=== PATIENT | female | born 1935 | race Caucasian/White ===

== ENCOUNTER 2018-06-15 10:15 | Observation (INO) | payer MEDICARE, BC, OTHER ==
[2018-06-15] MEDS ORDERED: SODIUM CHLORIDE 0.9% 500 ML IV STA ×2 (11:17→12:33)
[2018-06-15] MEDS ORDERED: MECLIZINE 12.5 MG TAB PO STA (11:32)
--- NOTE | 2018-06-15 11:32 | ED ---
General Adult HPI - General Chief complaint: Dizziness Stated complaint: dizziness, hypertension Source: patient, family Mode of arrival: wheelchair Limitations: no limitations - History of Present Illness Initial comments: Dictation was produced using ihiji dictation software. please excuse any grammatical, word or spelling errors. Chief Complaint: 82-year-old female past medical history of paroxysmal atrial fibrillation, hypertension presents with acute onset dizziness. History of Present Illness: 82-year-old female past medical history of atrial fibrillation hypertension. Patient states she is visiting from out of town. She is originally from [place] where she receives her care. Patient is does have an established security services manager for home prescribes her Rythmol. Patient states that today she stood up and felt really dizzy. She denies any palpitations with the dizziness. Denies any history of strokes. No constitutional symptoms. Patient is from [facility] yesterday. She reports that her symptoms are only exacerbated with standing from a supine position. She does report that this dizziness causing her to fall with a predilection to the right side. The ROS documented in this emergency department record has been reviewed and confirmed by me. Those systems with pertinent positive or negative responses have been documented in the HPI. All other systems are other negative and/or noncontributory. - Related Data Home Medications Medication Instructions Recorded Confirmed Atorvastatin [Lipitor] 10 mg PO DAILY 06/15/18 06/15/18 Calcium Carbonate [Calcium] 600 mg PO DAILY 06/15/18 06/15/18 Pramipexole [Mirapex] 0.25 mg PO HS 06/15/18 06/15/18 Propafenone [Rythmol] 150 mg PO TID 06/15/18 06/15/18 Valsartan/Hydrochlorothiazide 1 tab PO DAILY 06/15/18 06/15/18 [Valsartan-Hctz 160-12.5 mg Tab] amLODIPine BESYLATE [Norvasc] 2.5 mg PO HS 06/15/18 06/15/18 Allergies Allergy/AdvReac Type Severity Reaction Status Date / Time No Known Allergies Allergy Verified 06/15/18 11:01 Review of Systems ROS Statement: Those systems with pertinent positive or pertinent negative responses have been documented in the HPI. ROS Other: All systems not noted in ROS Statement are negative. Past Medical History Past Medical History: Hypertension, Osteoarthritis (OA) Additional Past Medical History / Comment(s): paroxysmal atrial tachycardia History of Any Multi-Drug Resistant Organisms: None Reported Past Surgical History: Hysterectomy Additional Past Surgical History / Comment(s): vein stripping, cataract Past Psychological History: No Psychological Hx Reported Smoking Status: Never smoker Past Alcohol Use History: Daily Past Drug Use History: None Reported General Exam - General Exam Comments Initial Comments: PHYSICAL EXAM: General Impression: Alert and oriented x3, not in acute distress HEENT: Normocephalic atraumatic, extra-ocular movements intact, pupils equal and reactive to light bilaterally, mucous membranes moist, left beating nystagmus, no skew with one eye test, no direction changing nystagmus, negative head impulse Cardiovascular: Heart regular rate and rhythm, S1&S2 audible, no murmurs, rubs or gallops Chest: Lungs clear to auscultation bilaterally, no rhonchi, no wheeze, no rales Abdomen: Bowel sounds present, abdomen soft, non-tender, non-distended, no organomegaly Musculoskeletal: Pulses present and equal in all extremities, no peripheral edema Motor: Power 5/5 bilaterally, no focal deficits noted Neurological: CN II-XII grossly intact, no focal motor or sensory deficits noted Skin: Intact with no visualized rashes Psych: Normal affect and mood Limitations: no limitations Course Vital Signs 06/15/18 06/15/18 10:37 12:31 Temperature 97.9 F Pulse Rate 77 66 Respiratory 18 16 Rate Blood Pressure 191/86 137/64 O2 Sat by Pulse 97 97 Oximetry Medical Decision Making - Medical Decision Making ED course: The female past medical history paroxysmal atrial fibrillation hypertension presents with vertiginous symptoms. Upon arrival shows blood pressure 191/86, rest of vital signs within normal limits.Laboratory evaluation obtained. CBC unremarkable. Coag panel unremarkable. Metabolic panel is grossly unremarkable. There is some signs of dehydration given elevated BUN/creatinine ratio. Urine shows findings to suggest urinary tract infection. X-ray was obtained showing possible lingular infiltrate. Patient not having any infectious symptoms however given the patient is dizzy is possibility that these could be causing her symptoms. Given age and risk factors there is still concern for posterior stroke. Patient given aspirin. Discussed with patient that would like to keep her for MRA of the neck looking for vertebrobasilar insufficiency. Understandable and agreeable. Patient be admitted to observation. EKG Interpretation: A 12 lead EKG was obtained. It was interpreted by myself and attending physician. There is a P wave before every QRS complex. Rate is 62. Rhythm is normal sinus,. Interval to 2, QRS 116, QTC 41. QT is not prolonged. No ST segment depression or elevation. Patient burned EKG from [place] during a routine visit showing no acute changes. Overall, this EKG is unremarkable - Lab Data Result diagrams: 06/15/18 11:28 06/15/18 11:28 Lab Results 06/15/18 06/15/18 06/15/18 Range/Units 11:19 11:28 11:28 WBC 5.9 (3.8-10.6) k/uL RBC 4.51 (3.80-5.40) m/uL Hgb 14.4 (11.4-16.0) gm/dL Hct 43.8 (34.0-46.0) % MCV 97.0 (80.0-100.0) fL MCH 31.9 (25.0-35.0) pg MCHC 32.9 (31.0-37.0) g/dL RDW 13.0 (11.5-15.5) % Plt Count 180 (150-450) k/uL Neutrophils % 70 % Lymphocytes % 22 % Monocytes % 5 % Eosinophils % 1 % Basophils % 0 % Neutrophils # 4.2 (1.3-7.7) k/uL Lymphocytes # 1.3 (1.0-4.8) k/uL Monocytes # 0.3 (0-1.0) k/uL Eosinophils # 0.0 (0-0.7) k/uL Basophils # 0.0 (0-0.2) k/uL PT (9.0-12.0) sec INR (<1.2) Sodium 140 (137-145) mmol/L Potassium 4.2 (3.5-5.1) mmol/L Chloride 106 (98-107) mmol/L Carbon Dioxide 26 (22-30) mmol/L Anion Gap 8 mmol/L BUN 25 H (7-17) mg/dL Creatinine 0.90 (0.52-1.04) mg/dL Est GFR (CKD-EPI)AfAm 69 (>60 ml/min/1.73 sqM) Est GFR (CKD-EPI)NonAf 60 (>60 ml/min/1.73 sqM) Glucose 102 H (74-99) mg/dL Calcium 9.6 (8.4-10.2) mg/dL Total Bilirubin 0.7 (0.2-1.3) mg/dL AST 21 (14-36) U/L ALT 28 (9-52) U/L Alkaline Phosphatase 81 (38-126) U/L Troponin I (0.000-0.034) ng/mL Total Protein 6.8 (6.3-8.2) g/dL Albumin 4.2 (3.5-5.0) g/dL Urine Color Colorless Urine Appearance Clear (Clear) Urine pH 7.0 (5.0-8.0) Ur Specific [place] 1.004 (1.001-1.035) Urine Protein Negative (Negative) Urine Glucose (UA) Negative (Negative) Urine Ketones Negative (Negative) Urine Blood Negative (Negative) Urine Nitrite Negative (Negative) Urine Bilirubin Negative (Negative) Urine Urobilinogen <2.0 (<2.0) mg/dL Ur Leukocyte Esterase Moderate H (Negative) Urine RBC <1 (0-5) /hpf Urine WBC 9 H (0-5) /hpf Urine WBC Clumps Rare H (None) /hpf Ur Squamous Epith Cells <1 (0-4) /hpf Urine Bacteria Occasional H (None) /hpf 06/15/18 06/15/18 Range/Units 11:28 11:28 WBC (3.8-10.6) k/uL RBC (3.80-5.40) m/uL Hgb (11.4-16.0) gm/dL Hct (34.0-46.0) % MCV (80.0-100.0) fL MCH (25.0-35.0) pg MCHC (31.0-37.0) g/dL RDW (11.5-15.5) % Plt Count (150-450) k/uL Neutrophils % % Lymphocytes % % Monocytes % % Eosinophils % % Basophils % % Neutrophils # (1.3-7.7) k/uL Lymphocytes # (1.0-4.8) k/uL Monocytes # (0-1.0) k/uL Eosinophils # (0-0.7) k/uL Basophils # (0-0.2) k/uL PT 10.6 (9.0-12.0) sec INR 1.1 (<1.2) Sodium (137-145) mmol/L Potassium (3.5-5.1) mmol/L Chloride (98-107) mmol/L Carbon Dioxide (22-30) mmol/L Anion Gap mmol/L BUN (7-17) mg/dL Creatinine (0.52-1.04) mg/dL Est GFR (CKD-EPI)AfAm (>60 ml/min/1.73 sqM) Est GFR (CKD-EPI)NonAf (>60 ml/min/1.73 sqM) Glucose (74-99) mg/dL Calcium (8.4-10.2) mg/dL Total Bilirubin (0.2-1.3) mg/dL AST (14-36) U/L ALT (9-52) U/L Alkaline Phosphatase (38-126) U/L Troponin I <0.012 (0.000-0.034) ng/mL Total Protein (6.3-8.2) g/dL Albumin (3.5-5.0) g/dL Urine Color Urine Appearance (Clear) Urine pH (5.0-8.0) Ur Specific [place] (1.001-1.035) Urine Protein (Negative) Urine Glucose (UA) (Negative) Urine Ketones (Negative) Urine Blood (Negative) Urine Nitrite (Negative) Urine Bilirubin (Negative) Urine Urobilinogen (<2.0) mg/dL Ur Leukocyte Esterase (Negative) Urine RBC (0-5) /hpf Urine WBC (0-5) /hpf Urine WBC Clumps (None) /hpf Ur Squamous Epith Cells (0-4) /hpf Urine Bacteria (None) /hpf Disposition Clinical Impression: Vertigo Disposition: ADMITTED IP TO THIS HOSP Referrals: None,Stated [Primary Care Provider] - 1-2 days Time of Disposition: 13:14
[2018-06-15 11:44] LABS: Basophils % (A) 0 %; Eosinophils % (A) 1 %; HCT 43.8 % (34.0-46.0); HGB 14.4 gm/dL (11.4-16.0); Lymphocytes # (A) 1.3 k/uL (1.0-4.8); Lymphocytes % (A) 22 %; MCH 31.9 pg (25.0-35.0); MCHC 32.9 g/dL (31.0-37.0); Mean Platelet Volume 7.2; Monocytes # (A) 0.3 k/uL (0-1.0); Monocytes % (A) 5 %; Neutrophils # (A) 4.2 k/uL (1.3-7.7); Neutrophils % (A) 70 %; Platelet Count 180 k/uL (150-450); RBC 4.51 m/uL (3.80-5.40); WBC 5.9 k/uL (3.8-10.6)
[2018-06-15 11:48] LABS: Appearance,Urine Clear (Clear); Bacteria,Urine Occasional /hpf; Bilirubin,Urine Negative (Negative); Blood,Urine Negative (Negative); Color,Urine Colorless; Glucose,Urine (UA) Negative (Negative); Ketones,Urine Negative (Negative); Leukocyte Esterase,Urine Moderate (Negative); Nitrite,Urine Negative (Negative); Protein,Urine Negative (Negative); RBC,Urine <1 /hpf (0-5); Specific Gravity,Urine 1.004 (1.001-1.035); Squamous Epithelial Cell,Urine <1 /hpf (0-4); Urobilinogen,Urine <2.0 mg/dL (<2.0); WBC,Urine 9 /hpf (0-5)
[2018-06-15 11:51] LABS: Albumin 4.2 g/dL (3.5-5.0); Calcium 9.6 mg/dL (8.4-10.2); Potassium 4.2 mmol/L (3.5-5.1); Total Bilirubin 0.7 mg/dL (0.2-1.3); Total Protein 6.8 g/dL (6.3-8.2)
[2018-06-15 11:52] LABS: INR 1.1 (<1.2); Prothrombin Time 10.6 sec (9.0-12.0)
--- NOTE | 2018-06-15 11:52 | XR ---
EXAMINATION TYPE: XR chest 2V DATE OF EXAM: 06/15/2018 COMPARISON: None INDICATION: Dizziness hypertension TECHNIQUE: Frontal and lateral views of the chest are obtained. FINDINGS: The heart size is normal. The pulmonary vasculature is normal. Minimal infiltrate is in the lingula above the left diaphragm. Findings can be compatible with subseg mental atelectasis.. IMPRESSION: 1. Minimal infiltrate within the lingula. Correlate for subsegmental atelectasis. 2. Acute pulmonary process is not otherwise identified.
[2018-06-15] MEDS ORDERED: ASPIRIN 81 MG PO STA (12:34)
[2018-06-15] MEDS ORDERED: cefTRIAXone IN SWFI 1,000 MG/10 ML SYRINGE IVP STA (12:37)
[2018-06-15] MEDS ORDERED: NALOXONE 0.4 MG/ML 1 ML VIAL IV PRN (13:05)
--- NOTE | 2018-06-15 17:59 | MR ---
EXAMINATION TYPE: MR angio head wo con DATE OF EXAM: 06/15/2018 COMPARISON: None HISTORY: Vertigo TECHNIQUE: Time of flight images focusing on the [place] of [place] were performed without contrast. FINDINGS: There is arterial flow in the vertebrobasilar artery system. Distal vertebral arteries are symmetric. There is arterial flow in the distal internal carotid arteries bilaterally. There is arter ial flow in the anterior middle and posterior cerebral arteries. I see no evidence of aneurysm or schuyler vascularity. There is no mass effect. There is no evidence of stenosis. IMPRESSION: Negative MR angiogram of the brain.
--- NOTE | 2018-06-15 18:31 | HP ---
HISTORY AND PHYSICAL CHIEF COMPLAINT: This is an 82-year-old white female with paroxysmal atrial fibrillation, hypertension with acute onset of dizziness. She is admitted for an MRA to rule out vertebrobasilar insufficiency. PAST MEDICAL HISTORY: 1. Atrial fibrillation. 2. Hypertension. 3. Osteoarthritis. 4. Paroxysmal atrial tachycardia. She is from out of town, originally from [place]. She says her email marketing processor put her on Rythmol. She stood up today and became real dizzy. Denied any palpitations with the dizziness. No history of strokes. This is when standing from a supine position, dizziness causing her to fall with right side. REVIEW OF SYSTEMS: Fourteen-point review of systems negative except for mentioned in HPI. MEDICATIONS: 1. Lipitor 10 daily. 2. Calcium carbonate 600 mg daily. 3. Mirapex 0.25 daily. 4. Rythmol 150 t.i.d. 5. Valsartan/HCTZ 160/12.5 daily. 6. Norvasc 2.5 daily. ALLERGIES: NO KNOWN DRUG ALLERGIES. SURGICAL HISTORY: 1. Hysterectomy. 2. Vein stripping. 3. Cataract surgery. SOCIAL HISTORY: Daily alcohol. No smoking. No illicit drugs. PHYSICAL EXAMINATION: Blood pressure 130s to 190s over 60s to 80s, oxygen 97% on room air. Temperature 97.9, pulse 66 to 76, respiratory rate 16 to 18. CARDIOVASCULAR: S1, S2. LUNGS: Clear. GI: Soft. Non-tender. MUSCULOSKELETAL: Range of motion full x4. NEUROLOGIC: Cranial nerves are intact. SKIN: Warm, dry, intact. PSYCH: Normal mood and affect. Alert and oriented x3. HEENT: Normocephalic, atraumatic. X-ray done showed possible lingular infiltrate, concern about posterior stroke due to atrial fibrillation with hypertension acceleration and vertiginous symptoms. Neurologic consult will be done as well as a cardiology consult. MRA/MRI looking for vertebrobasilar insufficiency. Will monitor overnight, get consultations. Please see further orders. MMODL / IJN: [id number] /
[2018-06-15] MEDS: amLODIPine 2.5 MG TAB PO SCH (20:20)
[2018-06-15] MEDS: PRAMIPEXOLE 0.25 MG TAB PO SCH (20:20)
[2018-06-15] MEDS: PROPAFENONE 150 MG TAB PO SCH (20:20)
[2018-06-16 02:47] LABS: Potassium 4.1 mmol/L (3.5-5.1)
[2018-06-16 06:03] LABS: Cholesterol 193 mg/dL (<200); HDL Cholesterol 79 mg/dL (40-60); LDL Cholesterol,Calculated 102 mg/dL (0-99); Triglycerides 58 mg/dL (<150)
[2018-06-16] MEDS: HYDROCHLOROTHIAZIDE 12.5 MG CAP PO SCH (08:10)
[2018-06-16] MEDS: PROPAFENONE 150 MG TAB PO SCH ×3 (08:10→22:48)
[2018-06-16] MEDS: ATORVASTATIN 10 MG TAB PO SCH (08:11)
[2018-06-16] MEDS: VALSARTAN 160 MG TAB PO SCH (08:11)
[2018-06-16] MEDS: CALCIUM CARBONATE 500 MG CHEWABLE PO SCH (11:24)
--- NOTE | 2018-06-16 13:43 | XR ---
EXAMINATION TYPE: XR chest 2V DATE OF EXAM: 06/16/2018 COMPARISON: 06/15/2018 INDICATION: Follow-up infiltrate TECHNIQUE: Frontal and lateral views of the chest are obtained. FINDINGS: The heart size is normal. The pulmonary vasculature is normal. The lungs are clear. Previous lingular infiltrate has resolved. IMPRESSION: 1. No acute pulmonary process.
--- NOTE | 2018-06-16 16:31 | CT ---
EXAMINATION TYPE: CT angio chest DATE OF EXAM: 06/16/2018 COMPARISON: 06/16/2018 chest radiograph HISTORY: elevated d-dimer, dizziness CT DLP: 414 mGycm. Automated Exposure Control for Dose Reduction was Utilized. CONTRAST: CTA scan of the thorax is performed with IV Contrast, patient injected with 70 mL of Isovue 370, pulm onary embolism protocol. MIP Images are created on CT scanner and reviewed. FINDINGS: LUNGS: There is minimal bibasilar subsegmental atelectasis present. The lungs are grossly clear, ther e is no concerning parenchymal mass or nodule identified. There is no pleural effusion or pneumotho rax seen. The tracheobronchial tree is patent. MEDIASTINUM: There is satisfactory enhancement of the pulmonary artery and its branches, there is no CT evidence for pulmonary embolism. There are no greater than 1 cm hilar or mediastinal lymph nodes. Heart is enlarged. No pericardial effusion is seen. Ascending thoracic aorta is within normal limits of size measuring 3.0 cm OTHER: Right-sided extrarenal pelvis is noted within the upper abdomen. Probable left renal cyst is i ll-defined given the phase of contrast enhancement. Multilevel degenerative changes of the spine are mild to moderate. IMPRESSION: 1. No evidence of pulmonary embolism. 2. Cardiomegaly without pericardial effusion. 3. Minimal bibasilar subsegmental atelectasis.
[2018-06-16 16:51] LABS: Appearance,Urine Clear (Clear); Bilirubin,Urine Negative (Negative); Blood,Urine Negative (Negative); Color,Urine Colorless; Glucose,Urine (UA) Negative (Negative); Ketones,Urine Negative (Negative); Leukocyte Esterase,Urine Moderate (Negative); Nitrite,Urine Negative (Negative); Protein,Urine Negative (Negative); RBC,Urine <1 /hpf (0-5); Specific Gravity,Urine 1.015 (1.001-1.035); Squamous Epithelial Cell,Urine <1 /hpf (0-4); Urobilinogen,Urine <2.0 mg/dL (<2.0); WBC,Urine 2 /hpf (0-5)
[2018-06-16] MEDS: cefTRIAXone IN SWFI 1,000 MG/10 ML SYRINGE IVP SCH (17:12)
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
[2018-06-16] MEDS: amLODIPine 2.5 MG TAB PO SCH (19:47)
[2018-06-16] MEDS: PRAMIPEXOLE 0.25 MG TAB PO SCH (19:47)
--- NOTE | 2018-06-16 19:49 | MR ---
EXAMINATION TYPE: MR brain wo con DATE OF EXAM: 06/16/2018 COMPARISON: None HISTORY: Vertigo Standard multiplanar, multisequence MRI departmental protocol Multiplanar, multisequence images of the brain were acquired. Diffusion weighted imaging was performe d. FINDINGS: There is cerebral cortical atrophy. There is no mass effect nor midline shift. There is no sign of intracranial hemorrhage. There is extensive patchy increased signal in the cerebral hemispher es on T2 and FLAIR images at the cook-white matter junction. The total number is more than 25 and the se measure up to 1.5 cm. The brainstem is intact. Cerebellum is intact. Corpus callosum is intact. Sella turcica appears zaki l. There is no evidence of a cortical infarct. 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 No cortical infarct seen.
--- NOTE | 2018-06-16 22:14 | PN ---
PROGRESS NOTE SUBJECTIVE: Uzupdh[age]jk[age]ow[age]-old white female still remains dizzy at rest. Neurology has seen her, ordered a few different tests. We suspected this is due to hypertension acceleration. Orthostatics were negative on her. MRA of the brain is negative. MRI is pending. She had elevated D-dimer. CT scan of the chest and repeat x-ray showed no infiltrate, no blood clot in the lungs. UA is borderline for urine infection. Await further recommendations from Neurology and Cardiology. Possible discharge home if her hypertension improves and she will continue with Rocephin for UTI, which is borderline at this point. There is no evidence of pneumonia. MMODL / IJN: [id number] /
--- NOTE | 2018-06-17 06:59 | ECHOF ---
Referral Reason:dizziness MEASUREMENTS -------- HEIGHT: 160.0 cm WEIGHT: 63.5 kg BP: RVIDd: 2.2 cm (< 3.3) IVSd: 1.1 cm (0.6 - 1.1) LVIDd: 4.7 cm (3.9 - 5.3) LVPWd: 1.3 cm (0.6 - 1.1) IVSs: 1.3 cm LVIDs: 3.5 cm LVPWs: 1.5 cm LA Diam: 3.3 cm (2.7 - 3.8) LAESV Index (A-L): 26.22 ml/m Ao Diam: 2.9 cm (2.0 - 3.7) AV Cusp: 1.9 cm (1.5 - 2.6) LA Diam: 4.0 cm (2.7 - 3.8) MV EXCURSION: 18.547 mm (> 18.000) MV EF SLOPE: 53 mm/s (70 - 150) EPSS: 0.6 cm MV E Star: 0.38 m/s MV DecT: 359 ms MV A Star: 0.69 m/s MV E/A Ratio: 0.55 RAP: 5.00 mmHg RVSP: 15.95 mmHg FINDINGS -------- Sinus rhythm. This was a techncally difficult study with suboptimal views, , Definity utilized for enhancement of i mages. LV size, wall thickness and systolic function are normal, with an EF greater than 55%. The left maximus tricular size is normal. The right ventricle is normal in size. The left atrial size is normal. The right atrial size is normal. Lumason used There is mild aortic valve sclerosis. There is no evidence of aortic regurgitation. Mild mitral annular calcification present. Mild mitral regurgitation is present. Mild tricuspid regurgitation present. Right ventricular systolic pressure is normal at < 35 mmHg. There is no evidence of pulmonary hypertension. There is no pulmonic regurgitation present. The aortic root size is normal. There is no pericardial effusion. CONCLUSIONS -------- 1. This was a techncally difficult study with suboptimal views, , Definity utilized for enhancement o f images. 2. LV size, wall thickness and systolic function are normal, with an EF greater than 55%. 3. The left ventricular size is normal. 4. The right ventricle is normal in size. 5. The left atrial size is normal. 6. The right atrial size is normal. 7. Lumason used 8. There is mild aortic valve sclerosis. 9. Mild mitral annular calcification present. 10. Mild mitral regurgitation is present. 11. Mild tricuspid regurgitation present. 12. Right ventricular systolic pressure is normal at < 35 mmHg. 13. There is no evidence of pulmonary hypertension. 14. There is no pulmonic regurgitation present. 15. The aortic root size is normal. 16. There is no pericardial effusion. MULTIMEDIA PROGRAMMER: Emily Low RDCS
[2018-06-17 08:39] VITALS: BP 123/60; PULSE 65; RESP 17; TEMP 97.9
[2018-06-17] MEDS: ATORVASTATIN 10 MG TAB PO SCH (08:39)
[2018-06-17] MEDS: HYDROCHLOROTHIAZIDE 12.5 MG CAP PO SCH (08:40)
[2018-06-17] MEDS: PROPAFENONE 150 MG TAB PO SCH (08:40)
[2018-06-17] MEDS: VALSARTAN 160 MG TAB PO SCH (08:40)
[2018-06-17] MEDS ORDERED: ASPIRIN 81 MG PO SCH (09:00)
[2018-06-17] MEDS: cefTRIAXone IN SWFI 1,000 MG/10 ML SYRINGE IVP SCH (11:10)
[2018-06-17] MEDS: CALCIUM CARBONATE 500 MG CHEWABLE PO SCH (11:10)
--- NOTE | 2018-06-17 13:21 | P.PN ---
Subjective Progress Note Date: 06/17/18 Patient is a pleasant 82-year-old female who is being followed by the neurology service for dizziness. Patient lives in [place] and is here visiting her summer home. Patient states she got dizzy in the middle the night requiring her to hold onto foster. Patient denies any lateralizing weakness. She denies any dysarthria or dysphagia. Patient denies headache or changes in vision. Patient does have history of paroxysmal atrial tachycardia. 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 Orthostatics were negative. Patient's blood pressure was quite elevated on admission at 191/86. Patient also was found to have a urinary tract infection on admission. Patient did have elevated d-dimer on admission and chest CTA was done which was negative for any pulmonary embolism. Patient is currently on antibiotics for urinary tract infection. Patient reports dizziness is approximately 60% improved. At the time of my evaluation, patient's resting comfortably in bed and appears to be in no acute distress. Objective - Vital Signs Vital signs: Vital Signs Temp 97.9 F 06/17/18 08:00 Pulse 65 06/17/18 08:00 Resp 17 06/17/18 08:00 BP 123/60 06/17/18 08:00 Pulse Ox 95 06/17/18 08:00 Intake & Output 06/16/18 06/17/18 06/17/18 18:59 06:59 18:59 Intake Total 720 120 Balance 720 120 Weight 63.5 kg Intake: Oral 720 120 Other: # Voids 1 1 - Exam PHYSICAL EXAM: GENERAL APPEARANCE: Patient is a well-developed, female who appears to be in no acute distress. HEENT: Normocephalic, atraumatic, no facial asymmetry is seen. Neck is supple with no masses felt. CARDIOVASCULAR: Regular rate and rhythm. ABDOMEN: Nontender, nondistended. EXTREMITIES: Show no edema or clubbing. NEUROLOGICAL EXAM: Patient is awake, alert, and oriented 3. Speech and language are normal. Strength is full in all 4 extremities. Sensory exam is normal to light touch in all 4 extremities. No facial asymmetry is seen on cranial nerve testing. No pronator drift is noted. No tremors or seizure-like activity is seen. - Labs CBC & Chem 7: 06/15/18 11:28 06/16/18 02:13 Labs: Abnormal Lab Results - Last 24 Hours (Table) 06/16/18 Range/Units 15:03 Ur Leukocyte Esterase Moderate H (Negative) Microbiology - Last 24 Hours (Table) 06/16/18 15:03 Urine Culture - Preliminary Urine,Clean Catch Assessment and Plan Plan: Impression: 1. Dizziness, resolving 2. Uncontrolled hypertension 3. Elevated d-dimer 4. Acute urinary tract infection 5. History of paroxysmal atrial tachycardia Recommendations: Patient's dizziness is positional. Patient does state her dizziness is approximately 60% improved. Her dizziness is likely related to elevated blood pressure along with acute urinary tract infection. Neurologically she has no other symptoms. MRA was negative for any abnormality. MRI of the brain showed no evidence of a cortical infarct. MRI of the brain did show extensive white matter changes most likely consistent with chronic small vessel ischemia. Due to chronic small vessel ischemia, I do recommend continuing aspirin 81 mg by mouth daily after discharge. EEG was done and results are pending. A serum homocystine level was done and is normal. Continue statin therapy. Continue medical management for blood pressure control and urinary tract infection. Continue neurological checks. Patient is stable for discharge from a neurological standpoint. I will continue to follow with you on an as-needed basis. Feel free to call with any questions or concerns. I performed an examination of the patient and discussed the management with the YAM CURER. I have reviewed the YAM CURER notes and agree with the findings and plan of care.
--- NOTE | 2018-06-17 14:12 | P.PN ---
Subjective Progress Note Date: 06/17/18 This is a pleasant 82-year-old female who is very physically active, she spends 4 months out of the [place], has a history of hypertension, hyperlipidemia, paroxysmal atrial fibrillation and atrial tachycardia, osteoarthritis, presented to the hospital with symptoms of dizziness. Patient had apparently just stood up prior to the episode happening , she became so dizzy she had to hold herself up against the wall. She again had another episode very similar to this and again it was at a time where she was getting up from a supine position to a standing position. Chest x-ray on admission revealed minimal infiltrate within the lingula. White blood cell count is normal patient denies cough no fever or chills. EKG on arrival here shows a normal sinus rhythm with nonspecific ST-T wave changes. MR angiogram of the brain was performed which was negative. Patient does state that at the time the dizziness was happening she tried to check her blood pressure but it was not registering. White blood cell count 5.9, hemoglobin 14.4, platelet count 180. Sodium 140, potassium 4.1, BUN 5, creatinine 0.9. Magnesium 2.0. At the time of my examination, patient feels well, she denies any chest discomfort, no dizziness or lightheadedness, no palpitations. 06/17/2018 Patient seen and examined this morning, no further episodes of dizziness. No significant bradycardia or tachyarrhythmias. No evidence of hypotension. Echo revealed normal left ventricular systolic function. She is cleared for discharge from neurology perspective, from our standpoint patient a be able to be discharged home. We recommend that she follows up with Dr. Stapleton in the office, also been recommended the patient have an event monitor on discharge. This will be arranged for the patient. Objective - Vital Signs Vital signs: Vital Signs Temp 97.9 F 06/17/18 08:00 Pulse 65 06/17/18 08:00 Resp 17 06/17/18 08:00 BP 123/60 06/17/18 08:00 Pulse Ox 95 06/17/18 08:00 Intake & Output 06/16/18 06/17/18 06/17/18 18:59 06:59 18:59 Intake Total 720 120 Balance 720 120 Weight 63.5 kg Intake: Oral 720 120 Other: # Voids 1 1 - Exam PHYSICAL EXAMINATION: GENERAL: 82-year-old female in no acute distress at the time of my examination HEENT: Head is atraumatic, normocephalic. Pupils equal, round. Sclera anicteric. Conjunctiva are clear. Mucous membranes of the mouth are moist. Neck is supple. There is no elevated jugular venous pressure.] bruit is heard. HEART EXAMINATION: Heart S1, S2 normal. No murmur or gallop heard. CHEST EXAMINATION: Lungs are clear to auscultation and precussion. No chest wall tenderness is noted on palpation or with deep breathing. ABDOMEN: Soft, nontender. Bowel sounds are heard. No organomegaly noted. EXTREMITIES: 2+ peripheral pulses with no evidence of peripheral edema and no calf tenderness noted. NEUROLOGIC patient is awake, alert and oriented ?-3. . - Labs CBC & Chem 7: 06/15/18 11:28 06/16/18 02:13 Labs: Abnormal Lab Results - Last 24 Hours (Table) 06/16/18 Range/Units 15:03 Ur Leukocyte Esterase Moderate H (Negative) Microbiology - Last 24 Hours (Table) 06/16/18 15:03 Urine Culture - Preliminary Urine,Clean Catch Assessment and Plan Plan: Assessment and plan #1 dose of dizziness with no clear-cut evidence of syncope. No evidence of any tachycardia or bradycardia arrhythmias, no hypotension noted. #2 hypertension #3 history of atrial tachycardia, no history of atrial fibrillation. Plan From cardiology's perspective, patient may be able to be discharged home. We recommend she have a 30 day event monitor on discharge. We will schedule her to go and see Dr. Stapleton in the office next week. DNP note has been reviewed, I agree with a documented findings and plan of care. Patient was seen and examined.
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
--- NOTE | 2018-06-19 12:44 | EEG ---
ELECTROENCEPHALOGRAM REPORT DATE OF SERVICE: 06/17/2018. REASON FOR TESTING: Dizziness. DESCRIPTION OF THE PROCEDURE: This EEG was performed using a 21 channel digital electroencephalograph, following international 10-20 system. DESCRIPTION OF THE RECORDING: From the beginning of the tracing, and with patient's eyes closed, the background rhythm was mostly consisting of 10 Hz alpha frequency in the posterior occipital leads. No obvious asymmetry is seen. Photic stimulation was performed with a good driving response seen. No pathological waves were elicited. Hyperventilation was not performed. Rare movement artifacts are seen. The patient remains awake throughout the tracing. No epileptiform discharges were seen. Her EKG lead showed a regular rate and rhythm. INTERPRETATION: This awake EEG can be considered within normal limits. There is no asymmetry seen. No epileptiform discharges were noticed. The absence of epileptiform discharges does not rule out the diagnosis of epilepsy; therefore clinical correlation is recommended. MMLUCITA / ANTONI: [id number] /
== END 2018-06-17 15:41 | disposition home or self-care (01) ==
LOC: EC 10:15 → 6SEL 13:05
PROVIDERS: ADMIT Family Medicine; ATTEND Family Medicine
DX: R42 Dizziness and giddiness (principal); I48.0 Paroxysmal atrial fibrillation; I47.9 Paroxysmal tachycardia, unspecified; I10 Essential (primary) hypertension; E78.5 Hyperlipidemia, unspecified; M19.90 Unspecified osteoarthritis, unspecified site; I47.1 Supraventricular tachycardia; R79.1 Abnormal coagulation profile; R79.89 Other specified abnormal findings of blood chemistry; N39.0 Urinary tract infection, site not specified; G25.81 Restless legs syndrome; Z79.899 Other long term (current) drug therapy; Z83.3 Family history of diabetes mellitus; I67.9 Cerebrovascular disease, unspecified
CPT/HCPCS: 99285 ×2; 96361 ×2; 96374 ×2; 96376 ×2; 36415; 95819; 93005; 97530; 97162; 97166; 85379; 80061; 80053; 83735; 84132; 84484; 85025; 85610; 81001 ×2; 83090; 87086; 71046 ×2; 71275; 70544; 70551; G0378 ×3; C8929; J0696 ×3; Q9950; Q9967; 93306

== ENCOUNTER 2022-05-24 20:18 | Inpatient (IN) | payer MEDICARE, BC ==
[2022-05-24] MEDS ORDERED: SODIUM CHLORIDE 0.9% 500 ML 500 ML IV STA (20:39)
[2022-05-24] MEDS ORDERED: DILTIAZEM 125 MG in SODIUM CHLORIDE 0.9% 100 ML IV SCH (20:45)
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
[2022-05-24 21:04] LABS: Basophils # (A) 0.1 k/uL (0-0.2); Basophils % (A) 1 %; Eosinophils # (A) 0.2 k/uL (0-0.7); Eosinophils % (A) 2 %; HCT 42.8 % (34.0-46.0); HGB 14.2 gm/dL (11.4-16.0); Lymphocytes # (A) 1.7 k/uL (1.0-4.8); Lymphocytes % (A) 19 %; MCH 32.2 pg (25.0-35.0); MCHC 33.2 g/dL (31.0-37.0); MCV 96.9 fL (80.0-100.0); Monocytes # (A) 0.6 k/uL (0-1.0); Monocytes % (A) 7 %; Neutrophils # (A) 6.4 k/uL (1.3-7.7); Neutrophils % (A) 71 %; Platelet Count 216 k/uL (150-450); RBC 4.41 m/uL (3.80-5.40); RDW 12.9 % (11.5-15.5)
[2022-05-24 21:13] LABS: Albumin 4.2 g/dL (3.5-5.0); Calcium 9.2 mg/dL (8.4-10.2); Magnesium 1.9 mg/dL (1.6-2.3); Total Bilirubin 0.5 mg/dL (0.2-1.3); Total Protein 6.9 g/dL (6.3-8.2)
[2022-05-24 21:14] LABS: Partial Thromboplastin Time 23.6 sec (22.0-30.0); Prothrombin Time 11.1 sec (9.0-12.0)
--- NOTE | 2022-05-24 22:07 | XR ---
EXAMINATION TYPE: XR chest 2V DATE OF EXAM: 05/24/2022 COMPARISON: 06/16/2018 HISTORY: Dysrhythmia TECHNIQUE: 2 views FINDINGS: Heart is normal. Lungs are clear of consolidation. There are no hilar masses. Costophrenic angles are clear bony thorax is intact IMPRESSION: No active cardiopulmonary disease. No change.
[2022-05-24] MEDS ORDERED: NALOXONE 0.4 MG/ML 1 ML VIAL IV PRN (22:42)
[2022-05-24] MEDS ORDERED: ACETAMINOPHEN TAB 325 MG TAB PO PRN (22:42)
[2022-05-24] MEDS ORDERED: FLUTICASONE 50MCG/SPRAY NASAL 16GM EA NOSTRIL PRN (22:45)
[2022-05-24] MEDS ORDERED: cloNIDine HCL 0.1 MG TAB PO PRN (22:45)
[2022-05-24] MEDS ORDERED: PRAMIPEXOLE 0.25 MG TAB PO SCH (23:00)
[2022-05-24] MEDS: PROPAFENONE 150 MG TAB PO SCH (23:39)
[2022-05-25] MEDS: PROPAFENONE 150 MG TAB PO SCH (06:33)
[2022-05-25 08:42] VITALS: BP 166/73; PULSE 58; RESP 17; TEMP 97.6
[2022-05-25] MEDS ORDERED: hydroCHLOROthiazide 12.5 MG CAP PO SCH (09:00)
[2022-05-25] MEDS ORDERED: ATORVASTATIN 10 MG TAB PO SCH (09:00)
[2022-05-25] MEDS ORDERED: LOSARTAN 50 MG TAB PO SCH (09:00)
[2022-05-25] MEDS ORDERED: CALCIUM CARBONATE 500 MG CHEWABLE PO SCH (09:00)
--- NOTE | 2022-05-25 10:05 | CA ---
Transthoracic Echo Report Name: Abbey Barba Age: 86 Gender: F : 1935 Exam Date: 05/25/2022 07:46 Exam Location: [facility] Ht (in): 63 Wt (lb): 140 Ordering Physician: Genaro Alvarado Attending/Referring Phys: Rn Acute Rayna Guzman RDCS Procedure CPT: Indications: Paroxysmal atrial tachycardia Cardiac Hx: Technical Quality: Fair Contrast 1: Total Dose (mL): Contrast 2: Total Dose (mL): MEASUREMENTS (Male / Female) Normal Values 2D ECHO LV Diastolic Diameter PLAX 6.0 cm 4.2 - 5.9 / 3.9 - 5.3 cm LV Systolic Diameter PLAX 3.8 cm IVS Diastolic Thickness 1.0 cm 0.6 - 1.0 / 0.6 - 0.9 cm LVPW Diastolic Thickness 0.8 cm 0.6 - 1.0 / 0.6 - 0.9 cm LV Relative Wall Thickness 0.3 RV Internal Dim ED PLAX 2.2 cm LA Systolic Diameter LX 3.5 cm 3.0 - 4.0 / 2.7 - 3.8 cm LA Volume 45.2 cm??? 18 - 58 / 22 - 52 cm??? M-MODE Aortic Root Diameter MM 2.9 cm MV E Point Septal Separation 1.4 cm AV Cusp Separation MM 1.8 cm DOPPLER AV Peak Velocity 110.9 cm/s AV Peak Gradient 4.9 mmHg MV Area PHT 5.9 cm??? Mitral E Point Velocity 83.1 cm/s Mitral A Point Velocity 63.7 cm/s Mitral E to A Ratio 1.3 MV Deceleration Time 127.7 ms TR Peak Velocity 312.0 cm/s TR Peak Gradient 38.9 mmHg Right Ventricular Systolic Press 53.9 mmHg FINDINGS Left Ventricle Left ventricular ejection fraction is estimated at 45-50% with mildly increased left ventricular diastolic diameter. Left ventricular wall thickness normal. Right Ventricle Normal right ventricular size and function. Moderate pulmonary hypertension. Right Atrium Normal right atrial size. Left Atrium Mildly increased left atrial area. No evidence for an atrial septal defect. Mitral Valve Moderate mitral regurgitation, eccentric. Thickening of the mitral valve leaflets Aortic Valve Trace aortic regurgitation. Focal thickening of the aortic valve cusps. Tricuspid Valve Mild tricuspid regurgitation. Tricuspid valve appears to be normal Pulmonic Valve Pulmonic valve not well visualized. Pericardium Small pericardial effusion. Aorta Normal size aortic root and proximal ascending aorta. CONCLUSIONS 1. Mildly dilated left ventricle with mildly impaired systolic function 2. Moderate mitral regurgitation 3. Mild tricuspid regurgitation. Previewed by: Dr. Hitesh Stapleton MD (Electronically Signed) Final Date: 25 May 2022 10:04
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
--- NOTE | 2022-05-25 11:20 | P.DS ---
Providers Date of admission: 05/24/22 23:04 Attending physician: Da Holcomb Consults: 05/24/22 22:42 Consult Physician Routine Consulting Provider: Gordo Spence Consult Reason/Comments: Paroxysmal atrial tachycardia Do you want consulting provider notified?: Yes, Notify in am Primary care physician: Stated None Hospital Course: Please refer to my history of present illness for further details Plan - Discharge Summary New Discharge Prescriptions: New Metoprolol Tartrate [Lopressor] 12.5 mg PO BID 30 Days #60 tablet Apixaban [Eliquis] 2.5 mg PO BID #60 tab Continue Propafenone [Rythmol] 150 mg PO Q8H Pramipexole [Mirapex] 0.25 mg PO HS Atorvastatin [Lipitor] 10 mg PO DAILY Calcium Carbonate [Calcium] 600 mg PO DAILY hydroCHLOROthiazide 12.5 mg PO DAILY Fluticasone Nasal [place] [Flonase Nasal [place]] 1 spray EA NOSTRIL DAILY PRN PRN Reason: Allergy Symptoms cloNIDine HCL [Catapres] 0.1 mg PO DAILY PRN PRN Reason: Blood Pressure - High Losartan Potassium 100 mg PO DAILY Discharge Medication List Atorvastatin [Lipitor] 10 mg PO DAILY 06/15/18 [History] Calcium Carbonate [Calcium] 600 mg PO DAILY 06/15/18 [History] Pramipexole [Mirapex] 0.25 mg PO HS 06/15/18 [History] Propafenone [Rythmol] 150 mg PO Q8H 06/15/18 [History] Fluticasone Nasal [place] [Flonase Nasal [place]] 1 spray EA NOSTRIL DAILY PRN 05/24/22 [History] Losartan Potassium 100 mg PO DAILY 05/24/22 [History] cloNIDine HCL [Catapres] 0.1 mg PO DAILY PRN 05/24/22 [History] hydroCHLOROthiazide 12.5 mg PO DAILY 05/24/22 [History] Apixaban [Eliquis] 2.5 mg PO BID #60 tab 05/25/22 [Rx] Metoprolol Tartrate [Lopressor] 12.5 mg PO BID 30 Days #60 tablet 05/25/22 [Rx] Follow up Appointment(s)/Referral(s): None,Stated [Primary Care Provider] - 1-2 days Discharge Disposition: HOME SELF-CARE
--- NOTE | 2022-05-25 13:37 | CONS ---
CONSULTATION Abbey Barba is an 86-year-old lady, retired [employer] who lives in [place] most of the time and has a [place] in the [facility]. She came in to the hospital mainly because she was having what she described as a rapid heartbeat sensation and palpitations that started around 6:00 pm yesterday. She is known to have paroxysmal atrial tachycardia, not anticoagulated, takes propranolol. After arrival, she was actually found to be in atrial fib rapid rate. She converted to sinus rhythm. She is maintaining sinus rhythm resting comfortably. She takes propafenone 150 mg t.i.d. A small dose of beta ailyn 12.5 mg, metoprolol tartrate has been ordered b.i.d. She is doing well, maintaining sinus rhythm, asymptomatic, resting comfortably. PAST MEDICAL HISTORY: 1. Hypertension. 2. Hyperlipidemia. 3. Osteoarthritis. 4. History of atrial tachycardia. Patient is quite active, has no significant symptoms with significant activity including bike riding. She is status post hysterectomy. MEDICATIONS: Medications at home include: Propafenone 150 mg t.i.d., atorvastatin 10 mg daily. PHYSICAL EXAMINATION: On examination, blood pressure is 130/80, pulse rate about 64 per minute. HEENT unremarkable. Fundus was not examined by me. Neck is supple. No JVD. I do not hear any significant carotid bruit. Heart exam reveals S1, S2. No significant murmurs. Lungs are clear. ABDOMEN is soft, nontender. Lower extremities reveal normal pulses. No edema. Central nervous system is normal. EKG revealed sinus mechanism without significant ST-T changes. Initial EKG revealed atrial fib with rapid ventricular rate, nonspecific ST changes. The patient has mild IVCD on the EKG with leftward axis. IMPRESSION: 1. Paroxysmal atrial fibrillation, new onset. 2. Hypertension. 3. Hyperlipidemia. RECOMMENDATIONS: Patient can be discharged on Eliquis 2.5 mg b.i.d. and also additional small dose of metoprolol as indicated above. She will follow up with her physician upon discharge. Thank you very much for the consult. MMODL / IJN: [id number] /
== END 2022-05-25 14:14 | disposition home or self-care (01) | DRG 309 ==
LOC: EC 20:18 → 3SCARD 23:04
PROVIDERS: ADMIT Hospitalist; ATTEND Hospitalist
DX: I48.0 Paroxysmal atrial fibrillation (principal); I50.22 Chronic systolic (congestive) heart failure; G25.81 Restless legs syndrome; E78.5 Hyperlipidemia, unspecified; I11.0 Hypertensive heart disease with heart failure; I47.1 Supraventricular tachycardia; M19.90 Unspecified osteoarthritis, unspecified site; Z79.01 Long term (current) use of anticoagulants; Z79.899 Other long term (current) drug therapy; Z83.3 Family history of diabetes mellitus; Z86.19 Personal history of other infectious and parasitic diseases
CPT/HCPCS: 36415; 71046; 80053; 83735; 84484; 85025; 85610; 85730; 93005; 93306; 96361; 96374; 99285